=== PATIENT | female | born 1975 | race Hispanic/Latino ===

== ENCOUNTER → 2019-01-05 | Outpatient (CLI) | payer OTHER | END | disposition home or self-care (01) | LOC: RAH 15:25 | PROVIDERS: ATTEND Internal Medicine Pulmonary Disease | DX: Z87.09 Personal history of other diseases of the respiratory system (principal) | CPT/HCPCS: 71250 ==

== ENCOUNTER → 2021-02-27 | Outpatient (CLI) | payer BC | END | disposition home or self-care (01) | LOC: RAH 13:27 | PROVIDERS: ATTEND Internal Medicine Pulmonary Disease | DX: J98.11 Atelectasis (principal); J98.4 Other disorders of lung; Z90.49 Acquired absence of other specified parts of digestive tract | CPT/HCPCS: 71250 ==